=== PATIENT | female | born 1935 | race Caucasian/White ===

== ENCOUNTER 2019-06-27 14:02 | Emergency (ER) | payer MEDICARE, OTHER ==
[2019-06-27] MEDS ORDERED: Tranexamic Acid 1,000 MG in Sodium Chloride 0.9% 500 ML IV ONE ×2 (14:41→14:58)
--- NOTE | 2019-06-27 14:58 | EDM.PDOC ---
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 She is having problems clearing the clots from her throat. She was wearing her obturator when the bleeding started. This happened a week ago but stopped spontaneously. No fevers or chills, no coughing, no shortness of breath. No trauma. Onset: Sudden Duration: Hour(s): (45 minutes ago) Location: Reports: Other (Left posterior pharyngeal area) Associated Symptoms: Reports: Nausea/Vomiting (Bleeding is making her nauseous) - Related Data Allergies Allergy/AdvReac Type Severity Reaction Status Date / Time lisinopril Allergy Cough Verified 06/27/19 14:29 Home Meds: Home Meds Acetaminophen [Tylenol Extra Strength] 2,500 mg PO DAILY 06/27/19 [History] Cholecalciferol (Vitamin D3) [Vitamin D3] 2,000 unit PO DAILY 06/27/19 [History] Losartan [Cozaar] 50 mg PO DAILY 06/27/19 [History] Morphine Sulfate 15 mg PO DAILY 06/27/19 [History] Sennosides [Senna] 17.2 mg PO DAILY 06/27/19 [History] atorvaSTATin [Lipitor] 10 mg PO DAILY 06/27/19 [History] oxyCODONE 5 mg PO Q4H PRN 06/27/19 [History] Past Medical History HEENT History: Reports: Sinusitis Cardiovascular History: Reports: High Cholesterol, Hypertension [employer] History: Reports: Oncologic (Cancer) History: Reports: Basal Cell Carcinoma, Brain - Past Surgical History HEENT Surgical History: Reports: Other (See Below) Other HEENT Surgeries/Procedures: MAXILLA SURGERY Musculoskeletal Surgical History: Reports: Hip Replacement Social & Family History - Tobacco Use Smoking Status *Q: Unknown Ever Smoked ED ROS ENT - Review of Systems Review Of Systems: See Below Constitutional: Denies: Fever, Chills Respiratory: Denies: Shortness of Breath Cardiovascular: Denies: Chest Pain GI/Abdominal: Reports: Nausea. Denies: Vomiting Neurological: Denies: Headache ED EXAM, ENT - Physical Exam Exam: See Below Exam Limited By: No Limitations General Appearance: Alert, Mild Distress, Other (Patient is very uncomfortable due to the bleeding in the pharynx) Mouth/Throat: Other (Entire oral cavity is filled with blood clots. These were cleaned with a ring forceps and saline until there was just a small clot left in the very high left maxillary area at the base of the surgical defect, oozing was continuing from this space. It did not appear to be coming from the posterior nasal cavity or septae.) Respiratory/Chest: Lungs Clear Cardiovascular: Regular Rate, Rhythm Neurological: Alert, Oriented Psychiatric: Anxious Skin: Warm, Dry Course - Vital Signs Last Recorded V/S: Last Vital Signs Temp 96.7 F L 06/27/19 14:21 Pulse 109 H 06/27/19 14:21 Resp 16 06/27/19 14:21 BP 168/79 H 06/27/19 14:21 Pulse Ox 98 06/27/19 14:21 - Orders/Labs/Meds Labs: Laboratory Tests 06/27/19 Range/Units 14:34 WBC 13.5 H (4.5-11.0) K/uL RBC 4.34 (3.30-5.50) M/uL Hgb 12.7 (12.0-15.0) g/dL Hct 38.7 (36.0-48.0) % MCV 89 (80-98) fL MCH 29 (27-31) pg MCHC 33 (32-36) % Plt Count 472 H (150-400) K/uL Neut % (Auto) 76 H (36-66) % Lymph % (Auto) 15 L (24-44) % [place] % (Auto) 8 H (2-6) % Eos % (Auto) 1 L (2-4) % Baso % (Auto) 0 (0-1) % Meds: Medications Discontinued Medications Generic Name Dose Route Start Last Admin Trade Name Freq PRN Reason Stop Dose Admin Tranexamic Acid 1,000 mg/ 60 mls @ 240 mls/hr 06/27/19 15:15 06/27/19 15:03 Sodium Chloride IV 06/27/19 15:29 240 mls/hr ONETIME ONE Administration - Re-Assessments/Exams Free Text/Narrative Re-Assessment/Exam: 06/27/19 15:25 Patient's entire oral cavity on the left side was filled with blood clot. This was carefully removed under direct visualization with a ring forceps until the posterior pharynx and left maxillary defect was cleaned from clot. There was a smaller darkened area in the left maxillary area that appeared to be oozing. She rinsed her mouth out several times with ice water, however within 15 to 20 minutes it was again bleeding fairly briskly. I called [facility], they have no ENT available this weekend so deferred to [place]. Unfortunately there was some phone difficulties with 1 call and I was placed on hold for over half hour twice before being able to talk to her referring physician. I did activate air care in the meantime. A conference call with IR, ER, and ENT agreed that the patient should be sent urgently and an IR procedure would be her best treatment. Hemoglobin was normal. She will stop in ER when she gets to [place]. 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 Sepsis Event Note - Evaluation Sepsis Screening Result: No Definite Risk - Focused Exam Vital Signs: Vital Signs Temp Pulse Resp BP Pulse Ox 06/27/19 14:21 96.7 F L 109 H 16 168/79 H 98 06/27/19 14:19 96.7 F L 109 H 16 168/79 H 98 Date Exam was Performed: 06/27/19 Time Exam was Performed: 17:28
[2019-06-27] MEDS ORDERED: Tranexamic Acid 1,000 MG in Sodium Chloride 0.9% 50 ML IV ONE (15:15)
== END 2019-06-27 15:15 | disposition other institution (70) ==
LOC: JP.ED 14:02
DX: K13.79 Other lesions of oral mucosa (principal); Z88.8 Allergy status to other drugs, medicaments and biological substances; E78.00 Pure hypercholesterolemia, unspecified; I10 Essential (primary) hypertension; Z79.899 Other long term (current) drug therapy
CPT/HCPCS: 36415; 85025; 96374; 99284; J7050